=== PATIENT | female | born 1940 | race Caucasian/White ===

== ENCOUNTER → 2022-09-22 16:15 | Outpatient (CLI) | payer MEDICARE, OTHER, SELFPAY | PROVIDERS: PCP Physician Assistant; Visit Provider Specialist | DX: N39.0 Urinary tract infection, site not specified (principal); N39.41 Urge incontinence; N95.2 Postmenopausal atrophic vaginitis | CPT/HCPCS: 51798; 87086; 99215 ==

== ENCOUNTER → 2022-12-23 15:08 | Outpatient (CLI) | payer MEDICARE, OTHER, SELFPAY | PROVIDERS: PCP Physician Assistant; Visit Provider Specialist | DX: N39.0 Urinary tract infection, site not specified (principal); N95.2 Postmenopausal atrophic vaginitis; N39.41 Urge incontinence | CPT/HCPCS: 51798; 81002; 87086; 99215 ==

== ENCOUNTER → 2023-02-10 12:49 | Outpatient (CLI) | payer MEDICARE, OTHER, SELFPAY | PROVIDERS: PCP Physician Assistant; Visit Provider Specialist | DX: N39.0 Urinary tract infection, site not specified (principal); N95.2 Postmenopausal atrophic vaginitis; N39.41 Urge incontinence | CPT/HCPCS: 52000; 81002; 87077; 87086; 87186; 99215 ==

== ENCOUNTER → 2023-05-11 14:45 | Outpatient (CLI) | payer MEDICARE, OTHER, SELFPAY | PROVIDERS: PCP Physician Assistant; Visit Provider Specialist | DX: N39.46 Mixed incontinence (principal); N39.0 Urinary tract infection, site not specified; N95.2 Postmenopausal atrophic vaginitis; Z87.440 Personal history of urinary (tract) infections | CPT/HCPCS: 51798; 81002; 87086; 99214 ==